=== PATIENT | female | born 1965 | race Caucasian/White ===

== ENCOUNTER 2019-03-18 07:56 | Emergency (ER) | payer OTHER ==
[~2019-03-18] VITALS: Ht 137.2 cm; Wt 61.2 kg
[2019-03-18] MEDS ORDERED: TETRACAINE 0.5% OPHTH SOLUTION 4ML BOTTLE. OS ONE (08:30)
[2019-03-18] MEDS ORDERED: FLUORESCEIN 1MG EYE STRIP. ONE (08:30)
--- NOTE | 2019-03-18 08:33 | PHYS DOC ---
Adult General Chief Complaint Chief Complaint: EYE PROBLEMS HPI HPI Patient is a 53 year old F who presents with redness in the left eye over the past 3 days following this a scratch on her eye. She has no visual deficits. She does not wear contacts. She has no pressure in the eye. She describes minimal irritation to the eye without overt pain. She has no drainage. Review of Systems Review of Systems Constitutional: Denies fever or chills [] Eyes: Denies change in visual acuity, or eye pain [] HENT: Denies nasal congestion or sore throat [] Respiratory: Denies cough or shortness of breath [] Cardiovascular: No additional information not addressed in HPI [] GI: Denies abdominal pain, nausea, vomiting, bloody stools or diarrhea [] : Denies dysuria or hematuria [] Musculoskeletal: Denies back pain or joint pain [] Integument: Denies rash or skin lesions [] Neurologic: Denies headache, focal weakness or sensory changes [] Endocrine: Denies polyuria or polydipsia [] All other systems were reviewed and found to be within normal limits, except as documented in this note. Family History Family History No pertinent family medical sugar was reported Current Medications Current Medications No current medications Allergies Allergies No known allergies Physical Exam Physical Exam Constitutional: Well developed, well nourished, no acute distress, non-toxic appearance. [] HENT: Normocephalic, atraumatic, Eyes: PERRLA, EOMI, no discharge. [] Beefy red appearing conjunctiva on the left eye. Visual acuity is baseline. Neck: Normal range of motion, no tenderness, supple, no stridor. [] Cardiovascular:Heart rate regular rhythm, no murmur [] Lungs & Thorax: Bilateral breath sounds clear to auscultation [] Skin: Warm, dry, no erythema, no rash. [] Extremities: No tenderness, no cyanosis, no clubbing, ROM intact, no edema. [] Neurologic: Alert and oriented X 3, normal motor function, normal sensory function, no focal deficits noted. [] Psychologic: Affect normal, judgement normal, mood normal. [] Current Patient Data Vital Signs Vital Signs Date Time Temp Pulse Resp B/P (MAP) Pulse Ox O2 Delivery O2 Flow Rate FiO2 03/18/19 08:26 97.7 84 18 98 Room Air EKG EKG [] Radiology/Procedures Radiology/Procedures Tetracaine was used to anesthetize the eye. Fluorescein was used to the eye and a Odonnell lamp with magnification was used to view it. No obvious abrasions or foreign bodies were noted. Course & Med Decision Making Course & Med Decision Making Pertinent Labs and Imaging studies reviewed. (See chart for details) [] Dragon Disclaimer Dragon Disclaimer This electronic medical record was generated, in whole or in part, using a voice recognition dictation system. Departure Departure: Impression: Primary Impression: Hyphema, left Disposition: HOME, SELF-CARE Condition: STABLE Referrals: PCPDELGADO (PCP) Patient Instructions: Hyphema Additional Instructions: Rubina was seen in the emergency department for red eye. No emergency medical condition was found on history or physical exam. Her eye was stained and visualized. No obvious injury was noted. She was given anabolic eyedrops. 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 Scripts Polymyxin B Sulf/Trimethoprim (POLYMYXIN B-TMP EYE DROPS) 10 Ml Drops 1 DROP EACHEYE QID for eye irritation for 7 Days, #10 ML Prov: VITO PATTERSON MD 03/18/19 VITO PATTERSON MD Mar 18, 2019 08:33
[2019-03-18] MEDS ORDERED: POLY10DR3 EACHEYE (08:59)
[2019-03-18 09:17] VITALS: BP 110/48
== END 2019-03-18 09:15 | disposition home or self-care (01) ==
LOC: ER 07:56
DX: S05.12XA Contusion of eyeball and orbital tissues, left eye, initial encounter (principal); W50.4XXA Accidental scratch by another person, initial encounter; Y93.89 Activity, other specified; Y92.89 Other specified places as the place of occurrence of the external cause; Y99.8 Other external cause status
CPT/HCPCS: 99283

== ENCOUNTER 2019-05-07 14:33 | Emergency (ER) | payer OTHER ==
[~2019-05-07] VITALS: Ht 139.7 cm; Wt 61.2 kg
[~2019-05-07 14:33] MED LIST: POLY10DR3 EACHEYE
--- NOTE | 2019-05-07 15:58 | RAD ---
CHEST PA LATERAL History: Pleuritic cough for the past 2 weeks Comparison: None. Findings: The cardiomediastinal silhouette is normal. Pulmonary vasculature is normal. The lungs are clear. Calcified granuloma in both lung encinas. No pleural effusion or pneumothorax is seen. There is no acute bone abnormality. IMPRESSION: No acute cardiopulmonary process. Electronically signed by: Mohsen Trejo MD (05/07/2019 3:55 PM) [facility]
--- NOTE | 2019-05-07 16:16 | PHYS DOC ---
Past History Past Medical History: High Cholesterol, Other Additional Past Medical Histor: vertigo Past Surgical History: Tubal ligation Additional Past Surgical Histo: tubal Alcohol Use: None Drug Use: None Adult General Chief Complaint Chief Complaint: COUGH HPI HPI G3-year-old female presents with cough. She's had a cough for almost 2 weeks. She feels it is worse last couple days. She is felt feverish, but has not measured a fever. She has had a history of pneumonia in the past. No diagnosis of COPD or asthma. She has no complaints this time. Review of Systems Review of Systems Constitutional: Denies fever or chills [] Eyes: Denies change in visual acuity, redness, or eye pain [] HENT: Denies nasal congestion or sore throat [] Respiratory: Cough with shortness of breath [] Cardiovascular: No additional information not addressed in HPI [] GI: Denies abdominal pain, nausea, vomiting, bloody stools or diarrhea [] : Denies dysuria or hematuria [] Musculoskeletal: Denies back pain or joint pain [] Integument: Denies rash or skin lesions [] Neurologic: Denies headache, focal weakness or sensory changes [] Endocrine: Denies polyuria or polydipsia [] All other systems were reviewed and found to be within normal limits, except as documented in this note. Allergies Allergies Allergies Coded Allergies Type Severity Reaction Last Updated Verified aspirin Allergy Unknown 05/07/19 Yes Physical Exam Physical Exam Constitutional: Well developed, well nourished, no acute distress, non-toxic appearance. [] HENT: Normocephalic, atraumatic, bilateral external ears normal, oropharynx moist, no oral exudates, nose normal. [] Eyes: PERRLA, EOMI, conjunctiva normal, no discharge. [] Neck: Normal range of motion, no tenderness, supple, no stridor. [] Cardiovascular:Heart rate regular rhythm, no murmur [] Lungs & Thorax: Bilateral breath sounds diminished but clear to auscultation [] Abdomen: Bowel sounds normal, soft, no tenderness, no masses, no pulsatile masses. [] Skin: Warm, dry, no erythema, no rash. [] Back: No tenderness, no CVA tenderness. [] Extremities: No tenderness, no cyanosis, no clubbing, ROM intact, no edema. [] Neurologic: Alert and oriented X 3, normal motor function, normal sensory function, no focal deficits noted. [] Psychologic: Affect normal, judgement normal, mood normal. [] Current Patient Data Vital Signs Vital Signs Date Time Temp Pulse Resp B/P (MAP) Pulse Ox O2 Delivery O2 Flow Rate FiO2 05/07/19 14:58 98.3 71 20 97 Room Air EKG EKG [] Radiology/Procedures Radiology/Procedures [] Impressions: CHEST PA LATERAL History: Pleuritic cough for the past 2 weeks Comparison: None. Findings: The cardiomediastinal silhouette is normal. Pulmonary vasculature is normal. The lungs are clear. Calcified granuloma in both lung encinas. No pleural effusion or pneumothorax is seen. There is no acute bone abnormality. IMPRESSION: No acute cardiopulmonary process. Electronically signed by: Joanna Whyte MD (05/07/2019 3:55 PM) [facility] DICTATED AND SIGNED BY: JOANNA WHYTE MD DATE: 05/07/19 1555 CC: LORAINE WEAVER DO; PCP,DELGADO ~ Course & Med Decision Making Course & Med Decision Making Pertinent Labs and Imaging studies reviewed. (See chart for details) Chest x-rays negative for pneumonia. This is likely a viral URI with cough. Her influenza was negative. I will advise supportive care. She is stable for discharge at this time. [] Dragon Disclaimer Dragon Disclaimer This electronic medical record was generated, in whole or in part, using a voice recognition dictation system. Departure Departure: Impression: Primary Impression: Viral URI with cough Disposition: HOME, SELF-CARE Condition: STABLE Referrals: PCPDELGADO (PCP) Patient Instructions: Upper Respiratory Infection, Adult, [id number] LORAINE WEAVER DO May 07, 2019 16:16
[2019-05-07 18:19] LABS: INFLUENZA A PATIENT NEGATIVE (NEGATIVE); INFLUENZA B PATIENT NEGATIVE (NEGATIVE)
[2019-05-07 18:47] VITALS: BP 123/98
== END 2019-05-07 18:47 | disposition home or self-care (01) ==
LOC: ER 14:33
DX: J06.9 Acute upper respiratory infection, unspecified (principal); B97.89 Other viral agents as the cause of diseases classified elsewhere; E78.00 Pure hypercholesterolemia, unspecified; Z88.6 Allergy status to analgesic agent
CPT/HCPCS: 71046; 87804; 99285